=== PATIENT | male | born 1965 | race Caucasian/White ===

== ENCOUNTER 2023-07-14 10:47 | Outpatient (RCR) | payer OTHER, SELFPAY | END 2023-07-14 23:59 | disposition home or self-care (01) | LOC: RPT 10:47 | PROVIDERS: ATTENDING PHYSICIAN Physical Medicine & Rehabilitation | DX: S83.231D Complex tear of medial meniscus, current injury, right knee, subsequent encounter (principal) | CPT/HCPCS: 97010; 97110; 97112; 97140; 97162 ==

== ENCOUNTER 2023-07-25 11:59 | Outpatient (RCR) | payer OTHER, SELFPAY | END 2023-07-25 23:59 | disposition home or self-care (01) | LOC: RPT 11:59 | PROVIDERS: ATTENDING PHYSICIAN Physical Medicine & Rehabilitation | DX: S83.231D Complex tear of medial meniscus, current injury, right knee, subsequent encounter (principal); Z73.6 Limitation of activities due to disability; R26.2 Difficulty in walking, not elsewhere classified; M62.81 Muscle weakness (generalized); R26.89 Other abnormalities of gait and mobility | CPT/HCPCS: 97110; 97112; 97140 ==

== ENCOUNTER 2024-03-07 17:12 | Emergency (ER) | payer OTHER, SELFPAY ==
[2024-03-07 17:21] VITALS: BP 122/77
--- NOTE | 2024-03-07 20:22 | ED.GENMED ---
History of Present Illness
General
Chief Complaint: Skin Surface Trauma
Source: patient
Exam Limitations: none
Time Seen by Provider: 03/07/24 19:10
Nursing documentation reviewed up to this point in time: agreed with
History of Present Illness
History of Present Illness:
58-year-old right-handed male with history as documented presents to the emergency room for evaluation of a thumb laceration. Patient lacerated the palmar aspect of his right thumb with a cigar cutter. Has been unable to perform any flexion with
the thumb since. Came to the emergency room for assessment. No other injuries. Tetanus not up-to-date, says that his last tetanus was when he was 16.
Past History
Past History
ED Past Medical History: Hypercholesterolemia
ED Past Surgical History: None
Social History
Tobacco: Other (cigars)
Drug: None
Personal:
Review of Systems
Review of Systems
All Other Systems: ROS reviewed and negative except as documented in HPI and ROS
Skin: Reports other (Laceration to the thumb)
Phy Exam
Physical Exam
Physical Exam:
General: Well appearing and non-toxic
HEENT: protecting airway
Neck: appears supple
CV: No evidence of cyanosis
Resp: No accessory muscle use
Abd: Non-distended
Extremities: Patient has a small laceration horizontal on the palmar aspect of the right thumb at the thumb base, approximately 2 cm, somewhat gaping with exposed subcutaneous fat, tendon not readily visible on exploration in bloodless field; unable
to make any effort at flexion of the thumb
Neuro: Alert
Psych: Normal affect
Skin: Intact
Scores
Heart Failure Risk
Heart Failure Risk Score: Not Applicable
Heart Score for Chest Pain Patients
STEMI patient?: Not applicable
Withdrawal Assessment of Alcohol
Withdrawal Assessment Completed?: Not applicable
Course
Orders/Labs/Results
Orders:
Orders
03/07/24 20:21
CR Hand - Right 2 Views Urgent
Comment:
Reason For Exam: laceration, r/o FB, eval for fx thumb
03/07/24 20:22
Tetanus/Diphth/Acelpertussis [Adacel] 0.5 ml IM .ONCE ONE
Vital Signs
Initial and Last Documented VS:
Initial Vital Signs
Temp Pulse Resp BP Pulse Ox
36.9 C 78 18 122/77 97
03/07/24 17:21 03/07/24 17:21 03/07/24 17:21 03/07/24 17:21 03/07/24 17:21
Last Documented Vital Signs
Temp Pulse Resp BP Pulse Ox
36.9 C 78 18 122/77 97
03/07/24 17:21 03/07/24 17:21 03/07/24 17:21 03/07/24 17:21 03/07/24 17:21
Procedures
Laceration Closure
Right Thumb:
Status of Wound: clean
Size of Wound in cm: 2
Description of Wound Edges: sharp
Preparation: cleaned with saline
Anesthesia: 1% Lidocaine
Revision/Debridement: routine- no revision
Type of Closure: single layer closure
Skin Closure Material: 5-0 prolene
Number of sutures: 6
Splinting/Sling Placement
Right Hand:
Procedure completed by: Julien Kelly MD
Type of splint: thumb spica
Splint material: universal
Splint checked by provider?: Yes
Normal distal neurovascular exam?: Yes
MDM/Problems Addressed
Differential Diagnosis Includes:
Thumb laceration with likely flexor tendon injury
MDM/Problems Addressed:
58-year-old male presents for evaluation of a laceration of the thumb on a cigar cutter. Unable to flex the thumb, suspect likely flexor tendon injury. Will check an x-ray to rule out foreign body or bony injury. Will update tetanus. Irrigate
and repair laceration. Discussed case with hand surgery�laceration repair at bedside, they will see in the office tomorrow will likely need OR for repair. Will place in thumb spica splint.
Wound irrigated and repaired as documented procedure note. Dressing applied and thumb spica splint fitted. Discharged with orthopedic referral�they will see him in the office tomorrow.
*Radiology
Radiology exam reviewed: preliminary read by ED provider
*Pulse Oximetry
Patient hypoxic: no
*Critical Care Note
Total Time (30-74mins, 75-104mins- exclusive of procedures): Not Applicable
Data Reviewed
Source: patient
Patient Management
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
ED Attending Note
-
Portions of this chart may have been created with voice recognition software.� Occasional wrong word or��sound alike� substitutions may have occurred due to the inherent limitations of voice recognition software.
Discharge Plan
Departure
Patient Disposition: Home (Routine Discharge)
Date of Disposition: 03/07/24
Time of Disposition: 21:26
Patient with high blood pressure during this ER visit?: No
Discharge Problem:
Laceration of thumb, Injury of flexor tendon of hand
Instructions: Laceration Repair With Stitches (DC)
Prescriptions:
No Action
prednisone 10 MG tablet
10 mg PO .TAPER Qty: 30 0RF
Rx Instructions:
Take 40mg daily x3days, 30mg daily x3days,
20mg daily x3days, 10mg daily x3days.
oxycodone-acetaminophen 5 MG/325 MG tablet
1 tab PO Q4HPRN PRN (Reason: pain) Qty: 12 0RF
methocarbamol [Robaxin-750] 750 MG tablet
750 mg PO BID Qty: 14 0RF
Referrals:
Frederick Rice Jr., [Family Provider] -
Jimmie Deluna MD [Active] -
(Hand Surgery
You should receive a call tomorrow morning to schedule follow-up in the office tomorrow and arrange definitive repair of your tendon injury. If you not receive a call by noon tomorrow you should call the number above to confirm the appointment
time.)
Activity Restrictions/Additional Instructions:
Thank you for visiting the Emergency Department at [facility].
1. Please schedule a follow up appointment as directed. Call first thing tomorrow morning to make an appointment.
2. If indicated, please take your medications as instructed and indicated on discharge paperwork.
3. If any of your symptoms do not improve, or persist, or become more severe within 6-12 hours, please return to the emergency department for further care.
4. Please return to the emergency department if you develop a headache, neck pain/stiffness, fever greater than 100.4F, chest pain, shortness of breath, persistent nausea, vomiting, slurred speech, difficulty walking, numbness/tingling, weakness,
signs of infection or any other symptoms that are worrisome to you.
Please call [phone] if you have any questions.
Interventions
Interventions:
ED-Skin Assessment Last Done: 03/07/24 19:06
Discharge Date and Time
Print Language: [id number]
[2024-03-07] MEDS: ADACEL 0.5 ML IM (20:27)
[2024-03-07 21:29] VITALS: BP 135/86
== END 2024-03-07 21:36 | disposition home or self-care (01) ==
LOC: EMR 17:12
PROVIDERS: EMERGENCY PHYSICIAN Emergency Medicine; FAMILY PHYSICIAN Family Medicine
DX: S66.021A Laceration of long flexor muscle, fascia and tendon of right thumb at wrist and hand level, initial encounter (principal); S61.011A Laceration without foreign body of right thumb without damage to nail, initial encounter; W26.8XXA Contact with other sharp object(s), not elsewhere classified, initial encounter; Z23 Encounter for immunization; E78.00 Pure hypercholesterolemia, unspecified; K58.9 Irritable bowel syndrome, unspecified; H54.61 Unqualified visual loss, right eye, normal vision left eye; M51.35 Other intervertebral disc degeneration, thoracolumbar region; F17.290 Nicotine dependence, other tobacco product, uncomplicated; M43.22 Fusion of spine, cervical region
CPT/HCPCS: 99283; 12001; 90471; 73120; 90715

== ENCOUNTER → 2024-03-09 10:51 | Outpatient (REF) | payer OTHER, SELFPAY | LOC: RCS 10:51 | PROVIDERS: ATTENDING PHYSICIAN Orthopaedic Surgery Hand Surgery; FAMILY PHYSICIAN Family Medicine | DX: Z01.818 Encounter for other preprocedural examination (principal) | CPT/HCPCS: 93005 ==

== ENCOUNTER 2024-04-11 13:42 | Outpatient (RCR) | payer OTHER, SELFPAY | END 2024-04-11 23:59 | disposition home or self-care (01) | LOC: ROT 13:42 | PROVIDERS: ATTENDING PHYSICIAN Orthopaedic Surgery Hand Surgery; FAMILY PHYSICIAN Family Medicine | DX: S56.0 Injury of flexor muscle, fascia and tendon of thumb at forearm level (principal); Z73.6 Limitation of activities due to disability | CPT/HCPCS: 97010; 97110; 97140; 97166; 97535 ==

== ENCOUNTER 2024-05-16 13:01 | Outpatient (RCR) | payer OTHER, SELFPAY | END 2024-05-16 23:59 | disposition home or self-care (01) | LOC: ROT 13:01 | PROVIDERS: ATTENDING PHYSICIAN Orthopaedic Surgery Hand Surgery; FAMILY PHYSICIAN Family Medicine | DX: S56.021A Laceration of flexor muscle, fascia and tendon of right thumb at forearm level, initial encounter (principal); Z73.6 Limitation of activities due to disability | CPT/HCPCS: 97014; 97018; 97022; 97035; 97110; 97140; 97535 ==

== ENCOUNTER 2024-06-12 17:55 | Outpatient (RCR) | payer OTHER, SELFPAY | END 2024-06-12 23:59 | disposition home or self-care (01) | LOC: ROT 17:55 | PROVIDERS: ATTENDING PHYSICIAN Orthopaedic Surgery Hand Surgery; FAMILY PHYSICIAN Family Medicine | DX: Z47.89 Encounter for other orthopedic aftercare (principal); S56.0 Injury of flexor muscle, fascia and tendon of thumb at forearm level; Z73.6 Limitation of activities due to disability | CPT/HCPCS: 97022; 97035; 97110; 97140; 97763 ==

== ENCOUNTER 2024-07-16 15:06 | Outpatient (RCR) | payer OTHER, SELFPAY | END 2024-07-16 23:59 | disposition home or self-care (01) | LOC: ROT 15:06 | PROVIDERS: ATTENDING PHYSICIAN Orthopaedic Surgery Hand Surgery; FAMILY PHYSICIAN Family Medicine | DX: Z47.89 Encounter for other orthopedic aftercare (principal); S56.0 Injury of flexor muscle, fascia and tendon of thumb at forearm level; Z73.6 Limitation of activities due to disability | CPT/HCPCS: 97014; 97022; 97110; 97140 ==

== ENCOUNTER 2024-08-01 15:04 | Outpatient (RCR) | payer OTHER, SELFPAY | END 2024-08-01 23:59 | disposition home or self-care (01) | LOC: ROT 15:04 | PROVIDERS: ATTENDING PHYSICIAN Orthopaedic Surgery Hand Surgery; FAMILY PHYSICIAN Family Medicine | DX: Z47.89 Encounter for other orthopedic aftercare (principal); S56.0 Injury of flexor muscle, fascia and tendon of thumb at forearm level; Z73.6 Limitation of activities due to disability | CPT/HCPCS: 97022; 97035; 97110; 97140 ==